=== PATIENT | male | born 1970 | race African-American/Black ===

== ENCOUNTER 2023-06-10 13:35 | Inpatient (IN) | payer BC ==
[2023-06-10 14:58] VITALS: BMI 26.2
[2023-06-10] MEDS ORDERED: ONDANSETRON *ODT* 4 MG TABLET SL PRN (19:41)
[2023-06-10] MEDS ORDERED: NALOXONE HCL 0.4 MG/ML VIAL IM PRN (19:41)
[2023-06-10] MEDS ORDERED: POLYETHYLENE GLYCOL (HEALTHYLAX) 3350 17 GM PACKET PO PRN (19:41)
[2023-06-10] MEDS ORDERED: guaiFENesin 600 MG TABLET.ER (FP) PO PRN (19:41)
[2023-06-10] MEDS ORDERED: IBUPROFEN 600 MG TABLET (FP) PO PRN (19:41)
[2023-06-10] MEDS ORDERED: IBUPROFEN 400 MG TABLET (FP) PO PRN (19:41)
[2023-06-10] MEDS ORDERED: BISMUTH SUBSALICYLATE 524 MG/30 ML PO PRN (19:41)
[2023-06-10] MEDS ORDERED: DICYCLOMINE HCL 10 MG CAPSULE PO PRN (19:41)
[2023-06-10] MEDS ORDERED: NALOXONE HCL (KLOXXADO) 8 MG SPRAY NS PRN (19:41)
[2023-06-10] MEDS ORDERED: LOPERAMIDE HCL 2 MG CAPSULE PO PRN (19:41)
[2023-06-10] MEDS ORDERED: MAGNESIUM HYDROX 2400MG/30ML ORAL SUSPENSION 30 ML CUP PO PRN (19:41)
[2023-06-10] MEDS ORDERED: MAG HYDROX/AL HYDROX/SIMETH 30 ML UNIT-DOSE CUP PO PRN (19:41)
[2023-06-10] MEDS ORDERED: BENZOCAINE/MENTHOL (CHLORASEPTIC ) LOZENGE MM PRN (19:41)
[2023-06-10] MEDS ORDERED: hydrOXYzine PAMOATE 25 MG CAPSULE (FP) PO PRN (19:41)
[2023-06-10] MEDS ORDERED: BENZONATATE 200 MG CAPSULE PO PRN (19:41)
[2023-06-10] MEDS ORDERED: ACETAMINOPHEN 325 MG TABLET (FP) ONE (20:00)
[2023-06-10] MEDS ORDERED: cloNIDine HCL 0.1 MG TABLET ONE (20:00)
[2023-06-10] MEDS: ACETAMINOPHEN 325 MG TABLET (FP) PO PRN (20:02)
[2023-06-10] MEDS: cloNIDine HCL 0.1 MG TABLET PO ONE (20:02)
[2023-06-10] MEDS: NICOTINE POLACRILEX 2 MG GUM BUC PRN (22:23)
[2023-06-10] MEDS: THIAMINE HCL 100 MG TABLET (FP) PO SCH (22:23)
[2023-06-10] MEDS: MELATONIN 5 MG TABLETS PO SCH (22:23)
[2023-06-10] MEDS: METHOCARBAMOL 500 MG TABLET PO PRN (22:23)
[2023-06-11] MEDS: NICOTINE 14 MG/24 HOURS TOPICAL PATCH TD SCH (10:16)
[2023-06-11] MEDS: PRENATAL VITAMINS W/ FOLIC ACID TABLET (FP) PO SCH (10:17)
[2023-06-11 13:01] LABS: HEMATOCRIT 39.1 % (35.4-49); HEMOGLOBIN 12.6 GM/dL (11.7-16.9); MCH 26.4 pg (25.7-33.7); MCHC 32.1 g/dl (32.0-35.9); MEAN CELL VOLUME 82.2 fl (80-96); MEAN PLT VOLUME 9.6 fl (7.5-11.1); PLATELET COUNT 145 10^3/uL (134-434); RBC 4.76 M/mm3 (4.00-5.60); RDW 15.7 % (11.9-15.9); WHITE BLOOD COUNT 4.1 K/mm3 (4.0-10.0)
[2023-06-11 13:09] LABS: CHLORIDE 99 mmol/L (98-107); POTASSIUM 3.6 mmol/L (3.5-5.1); SODIUM 138 mmol/L (136-145)
[2023-06-11 13:26] LABS: ALBUMIN 3.3 g/dl (3.4-5.0); ANION GAP 7 mmol/L (4-13); BLOOD UREA NITROGEN 11.4 mg/dL (7-18); CALCIUM 8.8 mg/dL (8.5-10.1); CO2 32 mmol/L (21-32)
[2023-06-11 13:27] LABS: GLUCOSE,RANDOM 92 mg/dL (74-106)
[2023-06-11 13:29] LABS: CREATININE 1.1 mg/dL (0.55-1.3); SGOT/AST 99 U/L (15-37); SGPT/ALT 60 U/L (13-61)
[2023-06-11 13:31] LABS: BILIRUBIN,TOTAL 1.1 mg/dL (0.2-1)
[2023-06-11 13:32] LABS: ALK PHOS 66 U/L (45-117)
[2023-06-11 17:08] VITALS: BP 154/109; PULSE 65; RESP 16; TEMP 98.4
== END 2023-06-11 17:05 | disposition home or self-care (01) | DRG 775 ==
LOC: YASAS 13:35 → Y3N 19:47
PROVIDERS: ADMIT Allergy & Immunology; ATTEND Surgery
PROC: HZ2ZZZZ Detoxification Services for Substance Abuse Treatment (ICD-10-PCS; principal; 2023-06-10)
DX: F10.20 Alcohol dependence, uncomplicated (principal); F17.210 Nicotine dependence, cigarettes, uncomplicated
CPT/HCPCS: 36415; 80053; 80305; 80307; 85027; 86780; 87811; 93005; 93010